=== PATIENT | female | born 1950 | race Caucasian/White ===

== ENCOUNTER → 2017-04-09 | Outpatient (CLI) | payer BC ==
[~2017-04-09] MED LIST: FOLIC ACID0.8 MG PO; GLUCOSAMINE; HYZAAR 50-12.1 UDTAB PO; METHOTREXA2.5 MG/TAB; NORCO 325 MG-51 TAB PO; OMNICEF 300MG300 MG PO; PROTONIX 40MG T40 MG PO; ZOFRAN 4MG T4 MG/TAB PO
== END ==
LOC: MC.RAD 10:30
DX: Z12.31 Encounter for screening mammogram for malignant neoplasm of breast (principal); N64.89 Other specified disorders of breast

== ENCOUNTER → 2017-04-17 | Outpatient (CLI) | payer BC | LOC: MC.RAD 11:00 | DX: Z12.39 Encounter for other screening for malignant neoplasm of breast (principal) ==

== ENCOUNTER → 2018-12-05 | Outpatient (CLI) | payer MEDICARE, BC | LOC: MC.RAD 13:20 | DX: Z12.31 Encounter for screening mammogram for malignant neoplasm of breast (principal) ==

== ENCOUNTER → 2019-03-25 | Outpatient (CLI) | payer MEDICARE, BC | LOC: COL.RAD 07:43 | DX: M25.552 Pain in left hip (principal) | CPT/HCPCS: J3301; Q9967 ==

== ENCOUNTER → 2021-03-22 | Outpatient (CLI) | payer MEDICARE, BC ==
[~2021-03-22] VITALS: Ht 160 cm; Wt 79.5 kg
[~2021-03-22] MED LIST changes: +ALDACTONE 100M100 MG PO; +BLUE-EMU LIDOC1 EACH TP; +CELEXA 20MG20 MG/TAB PO; +COZAAR 50MG50 MG/TAB PO; +CURCUMIN95% PO; +ELIQUIS 2.5 PO; +FOLIC ACID0.4 MG; +LASIX 20MG TABL20 MG PO; +ONE-A-DAY ESSE1 EACH PO; +RITALIN 5MG5 MG/TAB PO; +SYNTHROID 0.0.025 MG PO; +TYLENOL 325MG325 MG PO; +TYLENOL 500MG500 MG PO; +ULTRAM 50MG TAB50 MG PO; +VITAMIN D31000 I1 PO
[2021-03-22 08:12] VITALS: BP 140/90; PULSE 79
[2021-03-22 09:15] LABS: PERITONEAL -POLYMORPHONUCLEAR 1.6 % (0-25); PERITONEAL FLUID RBC 0 /mm3 (0-0)
[2021-03-22 10:00] VITALS: BP 147/87; PULSE 96
== END ==
LOC: COL.RAD 07:52
PROVIDERS: Family Medicine
DX: K74.60 Unspecified cirrhosis of liver (principal); I26.99 Other pulmonary embolism without acute cor pulmonale; J90 Pleural effusion, not elsewhere classified; K76.6 Portal hypertension; R18.8 Other ascites
CPT/HCPCS: Q9967

== ENCOUNTER 2021-03-23 22:18 | Emergency (ER) | payer MEDICARE, BC ==
[~2021-03-23] VITALS: Ht 160 cm; Wt 77.3 kg
[~2021-03-23 22:18] MED LIST changes: -ALDACTONE 100M100 MG PO; -BLUE-EMU LIDOC1 EACH TP; -CELEXA 20MG20 MG/TAB PO; -ELIQUIS 2.5 PO; -LASIX 20MG TABL20 MG PO; -RITALIN 5MG5 MG/TAB PO; -TYLENOL 325MG325 MG PO; -TYLENOL 500MG500 MG PO; -ULTRAM 50MG TAB50 MG PO
[2021-03-23 23:50] VITALS: BP 128/73; PULSE 75; TEMP 98
== END 2021-03-23 23:51 | disposition home or self-care (01) ==
LOC: COL.ER 22:18
DX: L50.9 Urticaria, unspecified (principal); I26.99 Other pulmonary embolism without acute cor pulmonale; I10 Essential (primary) hypertension; E03.9 Hypothyroidism, unspecified; Z87.891 Personal history of nicotine dependence; Z79.890 Hormone replacement therapy; Z79.899 Other long term (current) drug therapy

== ENCOUNTER → 2021-08-02 | Outpatient (CLI) | payer MEDICARE, BC ==
[~2021-08-02] MED LIST changes: +ALDACTONE 100M100 MG PO; +BLUE-EMU LIDOC1 EACH TP; +CELEXA 20MG20 MG/TAB PO; +ELIQUIS 2.5 PO; +LASIX 20MG TABL20 MG PO; +RITALIN 5MG5 MG/TAB PO; +TYLENOL 325MG325 MG PO; +TYLENOL 500MG500 MG PO; +ULTRAM 50MG TAB50 MG PO
== END ==
LOC: COL.RAD 13:26
DX: M16.12 Unilateral primary osteoarthritis, left hip (principal)
CPT/HCPCS: J3301; Q9967

== ENCOUNTER 2021-08-23 17:25 | Observation (INO) | payer MEDICARE, BC ==
[~2021-08-23] VITALS: Ht 162.6 cm; Wt 65.5 kg
[~2021-08-23 17:25] MED LIST changes: -ALDACTONE 100M100 MG PO; -BLUE-EMU LIDOC1 EACH TP; -CELEXA 20MG20 MG/TAB PO; -ELIQUIS 2.5 PO; -LASIX 20MG TABL20 MG PO; -RITALIN 5MG5 MG/TAB PO; -TYLENOL 325MG325 MG PO; -TYLENOL 500MG500 MG PO; -ULTRAM 50MG TAB50 MG PO
[2021-08-23 19:05] LABS: BASO % 0.4 % (0.0-2.0); EOS # 0.1 (0.0-0.7); EOS % 0.7 % (0-4.0); GRAN # 5.4 (1.4-6.5); GRAN % 77.1 % (42.2-75.2); HEMATOCRIT 39.3 % (37.0-47.0); HEMOGLOBIN 14.1 g/dl (12.5-16.0); MEAN CELL VOLUME 94 fl (80.0-100.0); MEAN CORPUSCULAR HEMOGLOBIN 34 pg (27.0-31.0); MEAN CORPUSCULAR HGB CONC 36 g/dl (33.0-37.0); MEAN PLATELET VOLUME 10.9 fl (7.4-10.4); MONO # 0.5 (0.1-0.6); MONO % 7.4 % (1.7-9.3); PLATELET COUNT 71 K/mm3 (130-400); RED BLOOD COUNT 4.18 M/mm3 (4.10-5.30); REDCELL DISTRIBUTION WIDTH-CV 12.7 % (11.5-14.5)
[2021-08-23 19:22] LABS: ALBUMIN 3.6 gm/dL (3.4-4.8); BILIRUBIN,TOTAL 1.9 mg/dL (0.2-1.2); CALCIUM 9.9 mg/dL (8.4-10.2); CREATININE, serum 1.47 mg/dL (0.57-1.11); POTASSIUM 4.4 mmol/L (3.5-4.5); TOTAL PROTEIN 6.5 gm/dL (6.2-8.1)
[2021-08-23 21:54] VITALS: BP 96/79; PULSE 73; TEMP 98.5
[2021-08-23 22:22] LABS: COLLECTION METHOD CLEAN CATCH
[2021-08-23 22:28] LABS: PH 6 (5-8); SQUAMOUS EPITHELIAL 0-2 /hpf; URINE APPEARANCE Hazy; URINE BACTERIA None Seen /hpf; URINE BILIRUBIN Negative (NEGATIVE); URINE BLOOD Negative (NEGATIVE); URINE COLOR Yellow; URINE GLUCOSE Negative (NEGATIVE); URINE KETONE Negative (NEGATIVE); URINE LEUKOCYTE ESTERASE 3+ (NEGATIVE); URINE NITRATE Negative (NEGATIVE); URINE PROTEIN(semi-quant) Negative (NEGATIVE); URINE RBC None Seen /hpf; URINE UROBILINOGEN Negative (NEGATIVE)
[2021-08-23] MEDS ORDERED: RITALIN 5MG5 MG/TAB PO (22:28)
[2021-08-23] MEDS ORDERED: LASIX 20MG TABL20 MG PO (22:29)
[2021-08-23] MEDS ORDERED: ALDACTONE 100M100 MG PO (22:29)
[2021-08-23] MEDS ORDERED: ELIQUIS 2.5 PO (22:30)
[2021-08-23] MEDS ORDERED: CELEXA 20MG20 MG/TAB PO ×2 (22:32→22:33)
--- NOTE | 2021-08-23 22:48 | NUR ---
pt transferred to medical floor by ed staff via stretcher at approximately 2145, pt's daughter vita at bedside. pt a/ox3, pleasantly forgetful, refuses to wear hospital gown, n/s infusing at 75ml/hr to left fa iv. This nurse completed assesment, pt 02 room air, no laborous breathing noted, no significant skin issues,generalized bruising,edema noted to right hip, BLE pitting edema that rapidly resolves, right clavicle fracture supported by pillow, pt refuses sling. Pt and family member oriented to room, hospital policy. Med rec completed by this nurse with assistance of pt's daughter Vita; med list input in pt's chart. All questions/concerns answered. Bed low, bed alarm on, call light within reach.
[2021-08-23] MEDS ORDERED: ULTRAM 50MG TAB50 MG PO (22:56)
[2021-08-24] VITALS (7 sets, daily range): BP systolic 104–121; BP diastolic 59–93; PULSE 78–99; TEMP 98.1–99.1
--- NOTE | 2021-08-24 06:39 | NUR ---
PT HAD UNEVENTFUL NIGHT,A/0X3, PLEASANTLY FORGETFUL, NON-IMPULSIVE.02 ROOM AIR, VSS, N/S INFUSING AT 75ML/HR TO LFA IV. PT ADMINISTERED ANTIBIOTICS FOR POSS. UTI, ORTHO CONSULT CONTACTED, I&O NOTED AND RECORDED. PT WAS ABLE TO AMBULATE THIS NIGHT BY PIVOT AND 2 STEPS TO BEDSIDE COMMODE. PT REPORTS PAIN 7/10 TO HIPS AND RIGHT CLAVICLE. PT NEEDS MET. CALL LIGHT WTIHIN REACH. BED LOW. BED ALARM ON. PT VISIBLE TO NURSES DESK.
--- NOTE | 2021-08-24 07:00 | NUR ---
Bedside shift report received form RENETTA Caro. Pt in bed resting, awakens upon entry, denies needs, will continue ot monitor.
--- NOTE | 2021-08-24 09:41 | NUR ---
Assessment charted. PT doing well, PRN pain meds given for pain of 7/10 to R shoulder area. Pt is alert and mostly oriented but not oriented to year. Pleasant. Daughter at bedside, update provided. Bruising to R [place], able to use commode with 2 person assist. No bruising to R hip noted. REsting in bed, alarm on, will continue to monitor.
--- NOTE | 2021-08-24 10:12 | NUR ---
SW met with patient to discuss discharge planning. Patient reports that she lives with her daughter, Beatris Villegas ([phone]), Beatris's husb, and the grandchildren in [place]. There are stairs in the home but patient has no need to use them. Patient states she has a wheelchair, fww, cane, and a shower chair. She has no 02 needs and she does not drive. Her PCP is Dr. Rafiq Jaeger and she receives her medications from [facility], obtaining them without difficulty and she is able to afford them. Patient also states that her dtr and son n law do all of the cooking and cleaning. Patient's daughter, Beatris, is her designated MPOA. *D/C Plan: home, pending p/t and o/t evals.
[2021-08-24 12:04] LABS: HEMOGLOBIN 12.7 g/dl (12.5-16.0); MEAN CELL VOLUME 97 fl (80.0-100.0); MEAN CORPUSCULAR HEMOGLOBIN 34 pg (27.0-31.0); MEAN CORPUSCULAR HGB CONC 35 g/dl (33.0-37.0); MEAN PLATELET VOLUME 10.3 fl (7.4-10.4); PLATELET COUNT 57 K/mm3 (130-400); RED BLOOD COUNT 3.74 M/mm3 (4.10-5.30); REDCELL DISTRIBUTION WIDTH-CV 12.8 % (11.5-14.5)
[2021-08-24 12:18] LABS: CREATININE, serum 1.29 mg/dL (0.57-1.11); POTASSIUM 3.9 mmol/L (3.5-4.5)
[2021-08-24 12:41] LABS: HEMATOCRIT 36.1 % (37.0-47.0)
--- NOTE | 2021-08-24 14:57 | NUR ---
SW met with patient's daughter, Beatris, individually as she tearfully described how difficult it has become as her mother's primary certified nursing assistant. Beatris's husb is very helpful but dtr still has 2 children at home and she & her work full-time. Beatris is a professor at [employer] and her children are 10 and 13. Dtr is having a very difficult time with her mother's worsening condition. SW will continue to offer support and provide resources to patient and family.
--- NOTE | 2021-08-24 18:42 | NUR ---
Pt has rested off and on over shift, tearful at times and confuses. daughter has been to see pt often today. Bed alarm on, will give bedside shift report to nightshift nurse who will resume care.
[2021-08-25 04:04] VITALS: BP 100/86; PULSE 89; TEMP 98.9
--- NOTE | 2021-08-25 06:10 | NUR ---
PT SLEPT INTERMITTENTLY OVER NIGHT, WAS ABLE TO AMBULATE TO BEDSIDE COMMODE WITH THE ASSIST OF 2, 02 ROOM AIR, N/S INFUSING AT 75CC/HR TO RIGHT FA IV.PT REMAINS A/0X3 AND REQUIRED ORIENTATION ONCE THROUGH OUT THE NIGHT. PT REPORTS PAIN TO LEFT HIP 7/10, LEFT HIP CREPITUS NOTED. PT EXPRESSES NO FURTHER NEEDS. ALL QUESTIONS/CONCERNS ASWERED. BED LOW. BED ALARM ON. CALL LIGHT WITHIN REACH.
[2021-08-25 06:55] LABS: HEMOGLOBIN 12.1 g/dl (12.5-16.0); MEAN CELL VOLUME 96 fl (80.0-100.0); MEAN CORPUSCULAR HEMOGLOBIN 33 pg (27.0-31.0); MEAN CORPUSCULAR HGB CONC 35 g/dl (33.0-37.0); PLATELET COUNT 54 K/mm3 (130-400); RED BLOOD COUNT 3.64 M/mm3 (4.10-5.30); REDCELL DISTRIBUTION WIDTH-CV 12.6 % (11.5-14.5)
[2021-08-25 06:57] LABS: HEMATOCRIT 34.8 % (37.0-47.0)
[2021-08-25 07:32] LABS: CALCIUM 8.8 mg/dL (8.4-10.2); CREATININE, serum 1.26 mg/dL (0.57-1.11); POTASSIUM 4.1 mmol/L (3.5-4.5)
[2021-08-25 08:16] VITALS: BP 114/73; PULSE 80; TEMP 98.2
--- NOTE | 2021-08-25 08:56 | NUR ---
Shift assessment preformed. VSS. Patient C/O of 6/10 pain in her right shoulder area. Patient given PRN pain meds at 0600. Patient is drowsy and shows no s/s of pain or discomfort. Patient is oriented X3. Student nurse Asiya will be administering medications this AM under the supervision of Liscensed nurse. Patient denies any further pain, discomfort, or needs at this time. Call light in reach. Fall precautions in place.
[2021-08-25 11:47] VITALS: BP 113/71; PULSE 80; TEMP 98.1
--- NOTE | 2021-08-25 13:45 | NUR ---
Primary nurse was assisted with [phone] patient care by [employer] student Asiya Jameson and [employer] instructor Lorie Kwan MSN, RN
--- NOTE | 2021-08-25 14:05 | NUR ---
Patient states that pain in right shoulder/clavicle is rated a 3/10. States it is at a manageable level at this time. Patient encouraged to call for help if she needs help with anything or needs pain medication at any time. Call light in reach. Fall precautions in place. Daughter at the bedside.
--- NOTE | 2021-08-25 15:37 | NUR ---
VERO spoke with pritesh and VIRGIL Spear privately. She states that she and her are in the process of getting the patient's home ready to sell. Once the home is sold, patient will have well over the limit that Medicaid allows individuals to have. VERO explained the "[place]" process and advised her to contact [facility] or an real estate director for further guidance. We discussed d/c plan and that patient will be ready to d/c soon. After a lengthy discussion with pritesh, she asked me to send referrals to 1) [facility] and 2) [facility]. Pritesh has already been in touch with Canelo at [facility] and this worker advised Canelo and Zina that referrals were being faxed. VERO will continue to follow for d/c planning
--- NOTE | 2021-08-25 15:43 | NUR ---
Daughter, Beatris, requested this SW to help her to talk to patient about the discharge plan. Patient was tearful and this worker gave her opportunity to ask questions. Dtr is having difficult time with decision but also understands she is no longer capable of caring for her mother's extensive needs. SW will continue to follow for d/c planning.
[2021-08-25 16:39] VITALS: BP 108/60; PULSE 81; TEMP 97.8
--- NOTE | 2021-08-25 17:17 | NUR ---
Patient has had an ok day. PRN medication given for back and shoulder pain. Fluids running as ordered. VSS. Patient denies any further needs at this time. Call light in reach. Fall precautions in place.
--- NOTE | 2021-08-25 20:30 | NUR ---
PT ALERT AND ORIENTED X3. UNABLE TO ANSWER DATE. PT REORIENTED TO TIME. PT LUNGS CLEAR UPON ASUCULTATION. PT AMBULATED TO COMMODE DURING SHIFT CHANGE. AUDIBLE NOISE HEARD IN RIGHT HIP WITH MOVEMENT. PT UNSTEADY ON FEET. PT PULSES 2+ IN ALL EXTREMITIES. PT CAP REFILL <3S. PT ABLE TO CALL FOR NEEDS. PT CALL LIGHT WITHIN REACH.
[2021-08-25 21:13] VITALS: BP 121/69; PULSE 92; TEMP 97.8
[2021-08-26] VITALS (7 sets, daily range): BP systolic 94–124; BP diastolic 56–75; PULSE 76–86; TEMP 97.8–98.6
--- NOTE | 2021-08-26 07:30 | NUR ---
PT CONTINUING ON PLAN OF CARE. PT PAIN MANAGED WITH PRN PAIN MEDICATIONS. PT VITAL SIGNS REMAINED STABLE THIS SHIFT. PT ABLE TO CALL OUT FOR NEEDS. PT FREE FROM INJURY THIS SHIFT.
--- NOTE | 2021-08-26 13:57 | NUR ---
Primary nurse was assisted with [phone] patient care by [employer] student Ana Card and [employer] instructor Lorie Kwan MSN, RN
--- NOTE | 2021-08-26 16:39 | NUR ---
Optical Laboratory Manager contacted both Canelo at [facility] and Zina at [facility]. Both facilities cannot accept at this time. SW followed up with patient's daughter, Beatris about other placement options. SW also discussed patient's observation status and how that would mean patient would be private pay at a nursing facility until Medicaid could be applied for in the future. Patient has too many assets at this time to apply for Medicaid, however Beatris has met with a financial counselor about this. Beatirs verbalized understanding that patient would be private pay at a nursing facility at this time. VERO also facilitated a conversation between Beatris and Beatriz, Nurse Pull Tab Dealer to provide further clarification on status. SW faxed referrals to [facility], [facility] in [facility], and [facility]. SW contacted [facility] and they do not have beds at this time. VERO spoke with Rebeka at [facility] and Natasha at [facility], both facilities cannot admit over the weekend. Natasha at [facility] advised she would contact patient's daughter, Beatris. Discharge Plan: Awaiting acceptance from one of the above facilities.
--- NOTE | 2021-08-26 21:33 | NUR ---
Patient A/Ox3. Patient reports pain to her back 4/10 at shift start. Right arm sling in place. PRN pain med given per patient request. Assisted patient back to bed from chair. Call light in reach. Bed alarms on. Will continue to monitor.
[2021-08-27 00:08] VITALS: BP 117/71; PULSE 91; TEMP 98.3
[2021-08-27 04:40] VITALS: BP 114/70; PULSE 82; TEMP 98.3
--- NOTE | 2021-08-27 06:45 | NUR ---
Bedside shift report complete. Report received from RENETTA Castro. Pt. OOB to commode w/ staff member Lynda at this time. Pt. denies further needs at this moment.
[2021-08-27 08:43] VITALS: BP 107/71; PULSE 73; TEMP 97.8
[2021-08-27 11:36] VITALS: BP 116/67; PULSE 76; TEMP 97.9
--- NOTE | 2021-08-27 11:47 | NUR ---
Pt. progressing w/ plan of care. Pt. has been OOB most of this AM. Pt. reports pain to R clavicle, PRN pain med given, effect pending. Chair alarm on, call light and belongings in reach.
[2021-08-27 16:00] VITALS: BP 114/66; PULSE 82; TEMP 98.1
--- NOTE | 2021-08-27 17:57 | NUR ---
Pt. has had a good afternoon with her daughter by her side. PRN pain med given this afternoon with good effect. Needs addressed. Pt. OOB throughout the day. Chair alarm on. Needs addressed, call light and belongings in reach.
[2021-08-27 20:50] VITALS: BP 117/73; PULSE 91; TEMP 98.7
--- NOTE | 2021-08-27 21:10 | NUR ---
Patient sitting up in the chair and having dinner upon shift start. Patient alert and oriented. Patient states that she doesn't have much pain at this time and denies need for pain meds. Right arm sling in place. Assisted patient to bedside commode after dinner. Scheduled meds given per JAN. Call light in reach. Chair alarms on. Fall precaution maintained.
[2021-08-28 00:40] VITALS: BP 111/63; PULSE 89; TEMP 98.4
[2021-08-28 03:50] VITALS: BP 100/59; PULSE 84; TEMP 98.8
--- NOTE | 2021-08-28 06:39 | NUR ---
Report received from RENETTA Castro. Pt. denies needs at this time. Call light and belongings in reach.
[2021-08-28 07:13] LABS: HEMOGLOBIN 11.6 g/dl (12.5-16.0); MEAN CELL VOLUME 94 fl (80.0-100.0); MEAN CORPUSCULAR HEMOGLOBIN 34 pg (27.0-31.0); MEAN CORPUSCULAR HGB CONC 36 g/dl (33.0-37.0); MEAN PLATELET VOLUME 11.4 fl (7.4-10.4); PLATELET COUNT 62 K/mm3 (130-400); REDCELL DISTRIBUTION WIDTH-CV 12.4 % (11.5-14.5)
[2021-08-28 07:14] LABS: HEMATOCRIT 32.1 % (37.0-47.0)
[2021-08-28 08:21] VITALS: BP 99/60; PULSE 77; TEMP 98.6
[2021-08-28 09:10] LABS: CREATININE, serum 1.16 mg/dL (0.57-1.11)
[2021-08-28 12:00] VITALS: BP 102/62; PULSE 80; TEMP 98.5
[2021-08-28 16:04] VITALS: BP 105/72; PULSE 78; TEMP 98.1
[2021-08-28 19:38] VITALS: BP 107/64; PULSE 86; TEMP 98.2
--- NOTE | 2021-08-28 22:35 | NUR ---
PT ALERT AND ORIENTED WITH ASSESSMENT. PT ABLE TO STAND AND PIVOT TO COMMODE AND MOVE TO BED WITH 1:1 ASSIST. PT DORALIS PEDIS AND POSTERIOR TIBIAL PULSES PALPATED 1+ BILATERALLY. PT RIGHT CLAVICLE BRUISING YELLOWING WITH PURPLE MIDDLE. AUDIBLE POPPING HEARD WITH AMBULATION. PT REPORTS LEFT HIP IS NEEDING REPLACED. PT READJUSTED IN BED, CALL LIGHT WITHIN REACH.
[2021-08-29] VITALS (7 sets, daily range): BP systolic 94–124; BP diastolic 54–75; PULSE 69–84; TEMP 98.2–98.5
--- NOTE | 2021-08-29 04:49 | NUR ---
PT CONTINUING ON PLAN OF CARE. PT EXPRESSED PAIN IN CLAVICLE AT BEGINNING OF SHIFT, MANAGED WITH PRN PAIN MEDICATION PER ORDERS. PT STATED ADEQUATE PAIN RELIEF, ABLE TO SLEEP THIS SHIFT. PT AMBULATION STAND AND PIVOT WITH SHUFFLING STEPS, 1:1. PT VITAL SIGNS REMAINED STABLE THIS SHIFT.
--- NOTE | 2021-08-29 07:06 | NUR ---
Report received from RENETTA Hernandez. Pt. sitting up in chair, alert. Pt. reports 3/10 pain to R clavicle. Pt. requesting pain medication. Chair alarm on, call light and belongings in reach.
--- NOTE | 2021-08-29 07:31 | NUR ---
CHAR Ham called for PRN tylenol, new orders obtained. Pt. reports constipation, will administer PRN miralax this AM as well. Shift head to toe assessment complete. Pt. denies further needs at this time. Call light in reach.
--- NOTE | 2021-08-29 10:13 | NUR ---
VERO attempted to contact Rebeka at [facility] to follow up on referral. VERO left her a voicemail. VERO then contacted Corina at [facility] about referral. Corina reports that they are interested in the patient and that their recovery coordinator will be getting in contact with the patient's daughter. VERO then met with the patient's daughter, Beatris, to update. Beatris then received the phone call from [facility]. Beatris plans on going to [facility] this morning to tour the facility and discuss finances. Beatris reports that they really do not want to go to [facility] though and that their first preference is [facility]. Beatris was also interested in VERO sending a referral to [facility]. VERO contacted and faxed a referral to Jahaira at [facility]. VERO contacted Rebeka at [facility] again. Rebeka answered and reports that their team is still looking over the referral. VERO informed Rebeka how they are the families first preference. Rebeka reports that she will get back to soon with whether they can take or not.
--- NOTE | 2021-08-29 14:05 | NUR ---
Rebeka, at [facility], reports that they can accept the patient. She states that she will get in contact with the patient's daughter, Beatris, to discuss finances. VERO contacted and updated Beatris. Beatris reports that she will get in touch with [facility]. She reports that she also has a meeting with [facility] the [facility] now at 1330 today.
--- NOTE | 2021-08-29 16:32 | NUR ---
The patient's daughter, Beatris, returned back to the hospital. VERO followed up with Beatris. Beatris reports that her tour and meeting with [facility] went very well and that they have a room available for the patient. She reports that they would like to come and screen the patient tomorrow morning at 0800. VERO notified the patient's RN of this. Beatris reports that she is also waiting to hear back from Kim at [facility] for their memory care. VERO notified Rebeka at [facility].
--- NOTE | 2021-08-29 18:49 | NUR ---
This RN to end shift and RN Mary to continue care. Pt. sitting up in bed and denies needs at this time. Pt. reports pain has been tolerable this afternoon. Chair alarm on, call light in reach.
--- NOTE | 2021-08-29 21:30 | NUR ---
PT ALERT AND ORIENTED. PT ABLE TO STAND PIVOT TO COMMODE WITH 1:1 ASSIST. PT HAD SMALL BOWEL MOVEMENT. PT HAD 1+ PULSE PALPATED IN POSTERIOR TIBIAL BILATERALLY. PT REPOSITIONED IN CHAIR, PT K-PAD PLACED WITH BARRIER TO PROTECT SKIN. PT CALL LIGHT WITHIN REACH, NO OTHER NEEDS EXPRESSED AT THIS TIME.
--- NOTE | 2021-08-29 23:42 | NUR ---
PT IV NOT ABLE TO FLUSH, VERIFIED WITH HOSPITALIST OKAY TO DISCONTINUE IV. NOT RECEIVING IV MEDICATIONS OR ON TELE. PT VITALS STABLE AT THIS TIME.
[2021-08-30 03:52] VITALS: BP 98/61; PULSE 81; TEMP 98.2
--- NOTE | 2021-08-30 07:17 | NUR ---
PT HAD UNEVENTFUL NIGHT. REPORT GIVEN TO DAY SHIFT. VITAL SIGNS REMAINED STABLE THIS SHIFT. PT ABLE TO CALL FOR NEEDS AND CONVERSE FREELY. PT ABLE TO STAND PIVOT TO COMMODE OR REPOSITION TO BED/CHAIR WITH 1:1 ASSIST. PT FREE FROM INJURY THIS SHIFT.
[2021-08-30 07:42] VITALS: BP 106/62; PULSE 82; TEMP 98
--- NOTE | 2021-08-30 10:04 | NUR ---
Assessment completed, alert/oriented, vital signs stable, reports pain is minimal while at rest, right arm is in sling, she is being evaluated by staff from [facility] this morning, daughter present in the room, she has had breafkast and denies other needs at this time, up in the recliner with chair alarm on and call light in reach, discharge planning in progress
[2021-08-30 12:22] VITALS: BP 125/72; PULSE 79; TEMP 98
--- NOTE | 2021-08-30 16:04 | NUR ---
Print Room Worker spoke with patient's daughter, Beatris who advised [facility] screened patient this morning and that she has a meeting with them this afternoon to discuss admission. VERO followed up with Ana at [facility] who advised she would follow up after their administrative team meets this afternoon as well. Patient's daughter, Beatris followed up with VERO this afternoon to report she was working on admissions paperwork and writing a check for [facility]. Beatris states she will work on buying patient a bed for her room first thing tomorrow. VERO contacted [facility] to follow up however Ana was gone for the day. SW to follow up in the morning to discuss admit. Discharge Plan: [facility]
[2021-08-30 16:11] VITALS: BP 103/57; PULSE 87; TEMP 97.7
[2021-08-30 19:58] VITALS: BP 109/59; PULSE 89; TEMP 98.3
--- NOTE | 2021-08-30 20:00 | NUR ---
Initial shift assessment done- states pain 12/05 to right shoulder/arm,states no pain meds needed at this time, has been up in chair- now back to bed, instructed to call for assistance up to BSC- bed alarm on as reminder.
[2021-08-31] VITALS (7 sets, daily range): BP systolic 102–126; BP diastolic 59–71; PULSE 76–90; TEMP 97.4–99.1
--- NOTE | 2021-08-31 05:54 | NUR ---
Quiet night-- Up to BS x3 during the night 2 assists, denies need for pain meds at this time. VSS. Right arm in sling.
--- NOTE | 2021-08-31 07:00 | NUR ---
Report with RENETTA Gomez. Pt resting in bed, awake and alert, denies needs at this time. Call light in reach.
[2021-08-31 07:28] LABS: BASO % 0.5 % (0.0-2.0); EOS # 0.1 K/mm3 (0.0-0.7); EOS % 3.6 % (0-4.0); GRAN # 2.2 K/mm3 (1.4-6.5); GRAN % 59.6 % (42.2-75.2); HEMOGLOBIN 12.1 g/dl (12.5-16.0); LYMPH % 26.4 % (20.0-51.0); MEAN CELL VOLUME 96 fl (80.0-100.0); MEAN CORPUSCULAR HEMOGLOBIN 34 pg (27.0-31.0); MEAN CORPUSCULAR HGB CONC 35 g/dl (33.0-37.0); MEAN PLATELET VOLUME 11.3 fl (7.4-10.4); MONO # 0.4 K/mm3 (0.1-0.6); MONO % 9.6 % (1.7-9.3); PLATELET COUNT 78 K/mm3 (130-400); RED BLOOD COUNT 3.58 M/mm3 (4.10-5.30); REDCELL DISTRIBUTION WIDTH-CV 12.6 % (11.5-14.5)
[2021-08-31 07:36] LABS: HEMATOCRIT 34.2 % (37.0-47.0)
[2021-08-31 08:16] LABS: CALCIUM 9.3 mg/dL (8.4-10.2); CREATININE, serum 1.23 mg/dL (0.57-1.11); POTASSIUM 4.2 mmol/L (3.5-4.5)
--- NOTE | 2021-08-31 09:00 | NUR ---
Assessment complete. Pt sitting up in chair, A&O x 3 with intermittent confusion/forgetfulness. Right upper arm with sling in place. Pt reports slight back pain 2 out of 10. Physical assessment otherwise unremarkable. No further needs reported. Call light in reach.
--- NOTE | 2021-08-31 13:47 | NUR ---
Hat Body Sorter spoke with Ana at [facility] who advised per their administration, they plan to accept patient, likely tomorrow. VERO contacted patient's daughter, Beatris who advised she met with [facility] and the plan is to admit patient tomorrow. Beatris is currently at the furniture store purchasing a new bed for patient. VERO updated Hospitalist that plan is for discharge tomorrow. Beatris plans to provide transportation for patient. Discharge Plan: [facility]
--- NOTE | 2021-08-31 16:46 | NUR ---
Pt sitting up in chair, denies needs at this time. Pt has been up to BSC several times today with assist x 1. Otherwise uneventful shift. Call light in reach. Chair alarm on.
--- NOTE | 2021-08-31 22:41 | NUR ---
PT ALERT AND ORIENTED. PT ABLE TO STAND PIVOT TO BEDSIDE COMMODE. PT COMPLAINING OF PAIN 2/10, REQUESTING PRN MEDICATIONS. PRN TYLENOL GIVEN PER ORDERS. PT EDEMA 1+ IN BILATERAL LOWER EXTREMITIES. PT REPOSITIONED IN BED, NO OTHER NEEDS EXPRESSED AT THIS TIME. PT CALL LIGHT WITHIN REACH.
[2021-09-01 03:24] VITALS: BP 112/65; PULSE 77; TEMP 98.3
--- NOTE | 2021-09-01 04:58 | NUR ---
PT CONTINUING ON PLAN OF CARE. PT VITAL SIGNS REMAINED STABLE THIS SHIFT. PT ABLE TO STAND PIVOT TO COMMODE. PT ABLE TO CALL FOR NEEDS THIS SHIFT. PT FREE FROM INJURY THIS SHIFT.
[2021-09-01 07:55] VITALS: BP 122/69; PULSE 84; TEMP 98.4
[2021-09-01] MEDS ORDERED: BLUE-EMU LIDOC1 EACH TP (09:40)
[2021-09-01] MEDS ORDERED: TYLENOL 500MG500 MG PO ×2 (09:42)
[2021-09-01] MEDS ORDERED: ULTRAM 50MG TAB50 MG PO (10:39)
[2021-09-01] MEDS ORDERED: TYLENOL 325MG325 MG PO (10:39)
--- NOTE | 2021-09-01 11:17 | NUR ---
PT DISCHARGE ON STABLE CONDITION. D/C INSTRUCTIONS, MEDICATION AND FOLLOW REVEIWED WITH DAUGHTER AND PT AT THE BEDSIDE QUESTIONS AND CONCERNS ADDRESSED
--- NOTE | 2021-09-01 11:19 | NUR ---
Metal Milling Machine Operator spoke with Sheryl at [facility] to confirm they can accept patient today. Sheryl requested PT/OT Home Health orders if Hospitalist is willing. VERO collaborated with CHAR Ham who will add in these orders. Sheryl advised they will arrange for PT/OT. VERO faxed discharge orders to [facility]. VERO contacted patient's daughter, Beatris who advised she spoke with the facility and plans to tack picker patient around 10 to take her to [facility]. VERO advised PT/OT orders would be included and Beatris is pleased with this. VERO met with patient and advised she would be discharged to [facility] today. Patient is agreeable to this plan. Discharge Plan: [facility]
== END 2021-09-01 11:10 | disposition home or self-care (01) ==
LOC: COL.ER 17:25 → MEDICAL 18:54
PROVIDERS: Physician Assistant; Student in an Organized Health Care Education/Training Program; ADMIT Internal Medicine
DX: S42.031A Displaced fracture of lateral end of right clavicle, initial encounter for closed fracture (principal); G89.29 Other chronic pain; M54.9 Dorsalgia, unspecified; W19.XXXA Unspecified fall, initial encounter; M16.12 Unilateral primary osteoarthritis, left hip; G31.09 Other frontotemporal neurocognitive disorder; N17.9 Acute kidney failure, unspecified; N18.9 Chronic kidney disease, unspecified; I12.9 Hypertensive chronic kidney disease with stage 1 through stage 4 chronic kidney disease, or unspecified chronic kidney disease; E03.9 Hypothyroidism, unspecified; K74.60 Unspecified cirrhosis of liver; D69.6 Thrombocytopenia, unspecified; I10 Essential (primary) hypertension; I26.99 Other pulmonary embolism without acute cor pulmonale; F41.9 Anxiety disorder, unspecified; F02.80 Dementia in other diseases classified elsewhere, unspecified severity, without behavioral disturbance, psychotic disturbance, mood disturbance, and anxiety; F32.9 Major depressive disorder, single episode, unspecified; Z86.718 Personal history of other venous thrombosis and embolism; Z79.890 Hormone replacement therapy; Z79.899 Other long term (current) drug therapy; Z87.891 Personal history of nicotine dependence
CPT/HCPCS: 99231-AI; 99233-AI; 99239; G0378; J0696; J2270; J7030

== ENCOUNTER 2021-09-29 15:30 | Outpatient (RCR) | payer MEDICARE, BC ==
[~2021-09-29 15:30] MED LIST changes: +ALDACTONE 100M100 MG PO; +BLUE-EMU LIDOC1 EACH TP; +CELEXA 20MG20 MG/TAB PO; +ELIQUIS 2.5 PO; +LASIX 20MG TABL20 MG PO; +RITALIN 5MG5 MG/TAB PO; +TYLENOL 325MG325 MG PO; +TYLENOL 500MG500 MG PO; +ULTRAM 50MG TAB50 MG PO
== END 2021-11-25 | disposition home or self-care (01) ==
LOC: MKS.ESL.PT
DX: M25.552 Pain in left hip (principal); R42 Dizziness and giddiness

== ENCOUNTER 2022-05-08 20:48 | Emergency (ER) | payer MEDICARE, BC ==
[~2022-05-08] VITALS: Ht 162.6 cm; Wt 70.5 kg
[~2022-05-08 20:48] MED LIST changes: +ABILIFY 10MG TA10 MG PO
[2022-05-08 21:21] VITALS: BP 111/62; PULSE 90; TEMP 98.5
== END 2022-05-08 21:48 | disposition left against medical advice (07) ==
LOC: COL.ER 20:48
DX: R21 Rash and other nonspecific skin eruption (principal)

== ENCOUNTER → 2022-07-03 | Outpatient (CLI) | payer MEDICARE, BC | LOC: COL.RAD 11:15 | DX: K74.60 Unspecified cirrhosis of liver (principal) ==